=== PATIENT | female | born 1940 | race Caucasian/White ===

== ENCOUNTER → 2019-12-31 13:36 | Outpatient (CLI) | payer MEDICARE, OTHER, SELFPAY ==
[2020-01-01 08:41] LABS: COVID19 Sendout Not Detected (Not Detect)
== END ==
PROVIDERS: Visit Provider Nurse Practitioner
DX: Z01.812 Encounter for preprocedural laboratory examination (principal)
CPT/HCPCS: 87635

== ENCOUNTER 2020-01-03 08:50 | Day surgery (SDC) | payer MEDICARE, OTHER, SELFPAY ==
[2019-12-31 09:21] VITALS: BMI 32.9
[2020-01-03] VITALS (19 sets, daily range): BP systolic 93–148; BP diastolic 51–80; PULSE 76–98; RESP 10–18; TEMP 35.9–36.8; O2SAT 94–100; BMI 31.6
--- NOTE | 2020-01-03 07:38 | DI.RAD.S_ITS ---
PROCEDURE: XR KNEE LT 1TO2V INDICATIONS: post op total knee TECHNIQUE: 2 view(s) of the knee acquired. COMPARISON: None. FINDINGS: Bones: Patient is status post knee joint arthroplasty. Hardware components are in expected positions. Visualized bony structures are intact. Soft tissues: Overlying postoperative changes are noted. IMPRESSION: Expected postoperative appearance after left total knee arthroplasty. Normal alignment. Dictated by: Dayne Morgan M.D. on 01/03/2020 at 13:44 Approved by: Dayne Morgan M.D. on 01/03/2020 at 13:45
[2020-01-03] MEDS: LACTATED RINGERS 1,000 ML 42 ML IV ×2 (09:49→12:15)
[2020-01-03] MEDS: PREGABALIN 75 MG CAPSULE PO (09:50)
[2020-01-03] MEDS: CELECOXIB 200 MG CAPSULE 400 MG PO (09:50)
[2020-01-03] MEDS: ACETAMINOPHEN 325 MG TABLET 975 MG PO (09:50)
--- NOTE | 2020-01-03 10:20 | PM.PREOP ---
Pre-operative Note COVID-19 COVID-19 status: Negative Result date/Date tested (Pos, Neg/Pending): 12/31/19 Interval Note History & Physical reviewed/Exam performed by Physician: Yes Changes to H&P: No
[2020-01-03] MEDS: CEFAZOLIN 2 GM/100 ML FROZ.PIGGY IV (10:49)
--- NOTE | 2020-01-03 11:27 | SUR.OPER ---
Supine on padded OR bed. Pillow under head, arms secured on padded armboards <90 degree abduction. Safety belt across torso. Non-operative leg secured with tape over blanket over lower leg. Operative leg secured in [employer] positioner.
[2020-01-03] MEDS: BUPIVACAINE 0.25% W/ EPI 30 ML VIAL 60 ML INJ (11:34)
[2020-01-03] MEDS: BUPIVACAINE LIPOSOME 266 MG/20 ML VIAL INJ (11:35)
[2020-01-03] MEDS: MORPHINE 4 MG/ML INJ INJ (11:35)
[2020-01-03] MEDS: TRANEXAMIC ACID 1,000 MG VIAL 1000 MG INJ ×2 (11:36→12:15)
--- NOTE | 2020-01-03 12:49 | PM.OP.1 ---
Operative Date/Time/Diagnoses Date of procedure: 01/03/20 Time of procedure: 12:49 Pre-op diagnosis: Left knee osteoarthritis Post-op diagnosis: same Procedure & Clinicians Procedure: Left total knee replacement Same procedure as scheduled: Yes Indications: The patient has had progressively worsening left knee pain with radiographic changes consistent with arthritis. Non-operative management has failed and the patient has requested total knee replacement. The risks, benefits and alternatives to surgery were discussed with the patient prior to proceeding. Risks discussed included, but were not limited to, failure to relieve pain, stiffness, infection, nerve damage, deep venous thrombosis, pulmonary embolism, stroke, coma, heart attack, permanent paralysis and , as well as the potential need for eventual revision of the prosthetic. Surgeon: Julito Bhagat Electrical Engineering Manager: Kirsten Juan Click Yes if Unassisted: No Anesthesia Type: General, Spinal and Local Operative Notes Findings: Severe tricompartmental osteoarthritis worst on the lateral side with valgus deformity. Closure Type: primary Specimen(s): none sent Prosthetic devices, grafts, tissues, transplants, or devices: Implants used in this procedure were manufactured by the [employer] and included the BCS II Journey total knee replacement with a size 4 left cobalt chromium femoral component, a size 3 left non porous tibial base plate, a 9 mm cross-linked polyethylene tibial insert and a 32 mm oval Fide II patella. Applied: implant(s) Estimated Blood Loss (mL): 25 Blood products transfused: none Tourniquet time (min): 53 Procedure in detail: The patient was seen in the pre-operative area, where the left knee was identified as the operative site and this was marked with my initials. The patient received pre-operative antibiotics, and was taken to the operating room and placed on the operative table in the supine position. After satisfactory anesthesia, a registered phlebotomist part time out was performed. The left leg was encircled with a tourniquet about the proximal thigh, and the leg was prepared from the toes to the tourniquet with ChloroPrep in the usual fashion and draped through sterile drapes. The leg was elevated and exsanguinated with Eschmark bandage and the tourniquet inflated to 250 mmHg pressure. The knee was approached through an approximately 18 cm incision centered over the patella and carried into the knee through a medial parapatellar arthrotomy. The anterior osteophytes and soft tissues were removed. The rotational landmarks of Chilo's line and the transepicondylar axis were marked on the femur with electrocautery, and intramedullary guide holes for the femur and tibia were created. The distal femoral cut was made in 6 degrees of valgus using the intramedullary guide at the primary cut setting. The proximal tibial cut was then made using the intramedullary guide, taking 9 mm of bone off the less involved side. The extension gap was checked and the rotation of the femoral component confirmed with the gap balancing blocks. The anterior, posterior and chamfer cuts were then made. The posterior osteophytes and soft tissues were then removed. The posterior capsule was injected with part of a mixture of 30 ml 0.25% Marcaine mixed with 30 mL of saline and 20 ml Exparel and 4 mg of morphine for post-operative pain control. The remainder of this mixture was injected into the capsule and subcutaneous tissues during cement curing. The tibia was prepared with the rotation set by an extra medullary guide. Trial tibial and femoral components were then placed and the intercondylar notch cut through the femoral trial. Range of motion was 0-135 degrees, with good stability throughout the range. The patella was then cut to accommodate the patellar prosthetic. There was no need for a lateral release. The trials were then removed, and the femoral hole plugged with a bone plug. The bone was prepared with pulsatile lavage, and dried with a sponge. Cement was applied and the final prosthetics placed. Excess cement was removed during and after cement curing. After confirming there was no extruded cement posteriorly, the final tibial insert was placed. The knee was copiously irrigated and the tourniquet deflated. Hemostasis was obtained. The capsule was closed with interrupted # 2 polyester sutures. The subcutaneous layer was closed with 3-0 Vicryl, and the skin with a running 3-0 V-Lock suture and SteriStrips. An Aquacel Ag dressing was applied and the patient was taken to recovery having tolerated the procedure well. Complications: none Post-operative Condition: stable Disposition: PACU Plan for aftercare: The patient will be maintained on a standard total knee replacement protocol with weight bearing as tolerated. The patient will receive aspirin and sequential compression devices for DVT prophylaxis. The patient will be discharged home when safe for the home environment.
--- NOTE | 2020-01-03 12:49 | SUR.PHASEI ---
Bedside report given to Scott Aldana RN at this time. Pt in stable condition, vss. Transferred care of pt to Brice Aldana at this time.
[2020-01-03] MEDS: HYDROMORPHONE 2 MG INJ IV ×4 (13:04→13:40)
[2020-01-03] MEDS: fentaNYL 100 MCG/2 ML INJ IV ×2 (13:10→13:21)
--- NOTE | 2020-01-03 13:12 | SUR.PHASEI ---
Assumed care from Stephany. Pt c/o 01/17 pain, medicated with Dilaudid and fentanyl.
--- NOTE | 2020-01-03 13:32 | SUR.PHASEI ---
ASSUMED CARE OF PT AT THIS TIME. RECEIVED BEDSIDE REPORT FROM PREETI MANN.
[2020-01-03] MEDS: OXYCODONE IR 5 MG TABLET PO (13:45)
--- NOTE | 2020-01-03 14:37 | SUR.PHASEI ---
REPORT CALLED TO PREETI EDMONDS ON ACUTE CARE FLOOR. PT IN STABLE CONDITION, VSS. PT TRANSFERRED TO ACUTE CARE FLOOR BY Anders MONZON IN STABLE CONDITION.
--- NOTE | 2020-01-03 14:53 | PC.NURSE ---
Patient brought up from PACU, oriented to room and call light, VSS. Aquacel dressing CDI to left knee. Patient reports pain is now mild. Patient suddenly felt her legs were wet and had incontinent episode of urine soaked in pad/sheets. Cleansed and linens changed. call light placed within reach.
[2020-01-03] MEDS: LACTATED RINGERS 1,000 ML 100 ML IV (15:10)
[2020-01-03] MEDS: ACETAMINOPHEN 325 MG TABLET 650 MG PO (15:56)
[2020-01-03] MEDS: IBUPROFEN 400 MG TABLET PO (15:56)
--- NOTE | 2020-01-03 17:00 | PC.NURSE ---
Addendum entered by Danita Becerra R.N. 01/03/20 22:32: Rouses easily to voice. Taking ice chips without any further nausea. No change in neurovascular status this evening shift. 02 1L per nc sats 98% per continuous monitor. BL calf scd's in place. Held hs meds d/t nausea and vomiting. Addendum entered by Danita Becerra R.N. 01/03/20 20:41: Mostly sleeping. Rouses to movement in room. No signs of distress or discomfort. Addendum entered by Danita Becerra R.N. 01/03/20 19:27: Pt has spontaneous emesis with movement in bed. This is coffee in color and pt reports just drank coffee. Up to commode to void without any c/o dizziness. Additional emesis while sitting upon commode. Zofran administered. Returned to bed and positioned for comfort. BL calf scd's replaced. Room air 87-88%. 02 @ 2L/min replaced. Oxygen saturation level increases to 99%. Original Note: Pt drowsy but able to participate in admit assessment. Spouse is present in room with pt. Continuous pulse oximeter indicates pt desats while awake to 80's and even 70's. This value is questioned as pt is fully awake and conversant. Placed pt on oxygen @ 3L/min and oxygen level increases to 100% with sleep. I.S. provided and pt instructed and able to provide return demonstration. Diminished breath sounds to posterior marrero throughout. Denies nausea. Denies pain. States sensation is returning to buttocks/perineum and BL LE's. Equally warm and pink lower extremities. Decreased to 2L oxygen. Denies history of sleep apnea.
[2020-01-03] MEDS: PANTOPRAZOLE 20 MG TABLET PO (18:04)
[2020-01-03] MEDS: ONDANSETRON 4 MG/2 ML INJ IV (18:45)
[2020-01-04] VITALS: BP 137/77; PULSE 92; RESP 16; TEMP 36.6; O2SAT 94
[2020-01-04] MEDS: LACTATED RINGERS 1,000 ML 100 ML IV (01:00)
[2020-01-04] MEDS: IBUPROFEN 400 MG TABLET PO ×3 (01:00→09:20)
[2020-01-04] MEDS: ONDANSETRON 4 MG/2 ML INJ IV (03:59)
[2020-01-04 04:00] VITALS: BP 119/68; PULSE 89; RESP 16; TEMP 36.1; O2SAT 97
[2020-01-04 06:07] LABS: Hematocrit 35.5 % (36-46); Hemoglobin 11.8 g/dL (12.0-16.0)
[2020-01-04 07:22] VITALS: BP 105/64; PULSE 70; RESP 14; TEMP 37.1; O2SAT 95
[2020-01-04] MEDS: ACETAMINOPHEN 325 MG TABLET 650 MG PO (07:33)
[2020-01-04] MEDS: ASPIRIN EC 81 MG TABLET PO (07:33)
[2020-01-04] MEDS: OXYCODONE IR 5 MG TABLET PO (07:33)
[2020-01-04] MEDS: DOCUSATE 100 MG CAPSULE PO (07:34)
[2020-01-04] MEDS: PANTOPRAZOLE 20 MG TABLET PO (07:36)
--- NOTE | 2020-01-04 08:23 | PM.DS.1 ---
History of Present Illness History of Present Illness Date Patient Seen: 01/04/20 Time Patient Seen: 08:23 Chief complaint: *[id number] Narrative: The history and physical are contained in the chart in a previously completed note. Please refer to that note for this information. Discharge Providers Provider Discharge Date: 01/04/20 Primary care physician: Levar Bhandari MD Consults: 01/03/20 14:48 Consult to Anesthesiology Routine Comment: Consulting Provider: Anesthesiologist Reason for consultation: Regional block for post operative pain control Consult to Discharge Planning Routine Comment: Consult to Physical Therapy Evaluate & Treat Comment: Physician Instructions: postop TKA protocol Discharge provider: Julito Bhagat MD Summary Hospital Course Discharge Diagnosis: 1. Left knee osteoarthritis 2. Post hemorrhagic anemia Hospital Course: The patient was admitted to the hospital and taken directly to the operating room on January 03, 2020 where she underwent a left total knee replacement without complication. She was stable overnight and at the time of this dictation and is likely she will go home after physical therapy. Status at Discharge Cognitive/behavioral status at discharge: oriented Functional status at discharge: uses cane/walker Overall status at discharge: patient is progressing back to baseline Time Spent with Patient Time spent: Less than 30 minutes Exam Vital Signs (past 8 hours): - 01/04/20 04:00 01/04/20 07:22 Temperature 97.0 F L 98.8 F Pulse Rate 89 70 Respiratory Rate 16 14 Blood Pressure 119/68 105/64 Pulse Oximetry 97 95 Oxygen Delivery Method Room Air Oxygen Flow Rate 0 Narrative Exam Narrative: Left knee wound is dressed with no drainage on the bandage. Calf is soft. Light touch and motion are intact in the left lower extremity. Objective Labs Result Diagrams: 01/04/20 05:45 Labs: Laboratory Results - last 24 hr 01/04/20 05:45 Hgb 11.8 L Hct 35.5 L Discharge Plan Discharge Plan Patient Disposition: Home Discharge Med Rec/Prescriptions Prescriptions: New acetaminophen 325 mg Tablet 650 mg PO TID 30 Days Qty: 180 RF: 0 aspirin 81 mg Tablet,Delayed Release (Dr/Ec) 81 mg PO BID 42 Days Qty: 84 RF: 0 ibuprofen 400 mg Tablet 400 mg PO Q4HR 30 Days RF: 0 oxycodone 5 mg Tablet 5 mg PO Q4H PRN (Reason: Pain, Moderate (4-6)) Qty: 40 RF: 0 Continued omeprazole 20 mg Capsule,Delayed Release(Dr/Ec) 20 mg PO DAILY PRN (Reason: Heartburn) RF: 0 zolpidem 5 mg Tablet 5 mg PO BEDTIME PRN (Reason: Sleep) RF: 0 Discontinued ibuprofen 200 mg Capsule 400 mg PO DAILY PRN (Reason: Pain) RF: 0 Follow up/Referrals: Levar Bhandari MD [Primary Care Provider] - Julito Bhagat MD [Physician] - 2 Weeks Discharge Orders: Discharge (Order); Ordered 01/04/20 Ordered By: Julito Bhagat Provider Discharge Instructions Diet: Diet as Tolerated and Regular Activity: You may bear weight as tolerated on your left leg. Cold/Heat Therapy: Apply ice for 15 minutes every hour as needed to the left knee for pain control. Skin/Wound/Dressing Care Report to your healthcare provider any signs of infection, such as:: chills, fever, night sweats, increased pain, unusual drainage and unusual redness Dressing: You may shower with the dressing in place. Leave the dressing in place until your postoperative follow-up. If the central strip of the dressing becomes saturated with either water or blood, please call the office to have it evaluated. Visit Report/Discharge Packet Instructions: DI for Knee Replacement Stand Alone Forms: Surgery Discharge Discharge Data Primary Care Provider: Levar Bhandari Attending Provider: Julito Bhagat
--- NOTE | 2020-01-04 08:48 | PC.NURSE ---
Addendum entered by Becca Gaston R.N. 01/04/20 10:37: Patient worked with physical therapy and cleared for discharge. Went over DC meds and instructions with patient and patients spouse. Questions answered. Rx for medication given. Patient taken via wc to vehicle driven by . Patient had all belongings. Original Note: Patient alert oriented, rates pain to left knee 8/10 given 5mg oxycodone with pudding.
--- NOTE | 2020-01-04 11:05 | PT.IIE ---
Current Diagnoses Unilateral primary osteoarthritis, left knee (01/03/20) Surgery Performed Operation Date: 01/03/20 10:30 Actual Procedures p Total Knee Arthroplasty(Left) - Julito Bhagat MD Surgical History (Last Updated 12/31/19 @ 10:12 by Natalie Figueroa, RN) History of carpal tunnel release of both wrists (Acute) History of meniscectomy of left knee (Acute) History of meniscectomy of right knee (Acute) Hx of tonsillectomy (Acute) Hx of tubal ligation (Acute) S/P epidural steroid injection (Acute) Status post blepharoplasty of both eyes (Acute) Medical History (Last Updated 12/31/19 @ 10:12 by Natalie Figueroa RN) Diverticulitis (Acute) Diverticulosis (Acute) Left shoulder pain (Acute) Physical Therapy Inpatient Evaluation/Re-Eval M1 PT/OT-IP Prior Functional Status Start: 01/04/20 08:37 Freq: NEEDED Status: Discharge Protocol: Document 01/04/20 09:47 (Rec: 01/04/20 11:04 [id number]) Medical Review Prior Functional Status Medical History Reviewed Yes Diet/Fluid Consistency Regular Communication no deficits noted. able to make needs known Mobility and Gait independent for home and community mobility without AD. Pt has been home bound lately d/t increased knee pain and COVID 19 pandemic Activities of Daily Living and IADL's independent for ADLs and IADLs without AD. able to drive Social History Household Members spouse Living Arrangements House Number of Floors (Floors) One Floor Number of Stairs To Enter/Railing? no KANWAL for main entrance, 1STE from garage entrance Home Environment High Toilet,Walk in Shower, Built-In Shower Seat Home Equipment Front Wheel Walker,Straight Cane,Raised Toilet Seat w/ Armrests,Shower Seat with Backrest,Putty And Patch Worker Employment Status Retired Additional Social History Comment Pt lives with her Sean in a [facility] home in [place]. Sean had 2 TKA before and pt was able to be a CG for him. Sean will be able to assist as needed upon DC. And she will start outpatient PT from 6/29 M2 PT-IP Current Condition Start: 01/04/20 08:37 Freq: NEEDED Status: Discharge Protocol: Document 01/04/20 09:47 (Rec: 01/04/20 11:04 [email or web address]) Physical Therapy Current Condition Current Condition Evaluation Date 01/04/20 Treatment Diagnosis L TKA, difficulty in walking Onset Date 01/03/20 Weight Bearing Status Weight Bearing Status Weight Bear as Tolerated M3 PT-IP Subjective Start: 01/04/20 08:37 Freq: NEEDED Status: Discharge Protocol: Document 01/04/20 09:47 (Rec: 01/04/20 11:04 [email or web address]) Subjective Physical Therapy Visit Type Type Initial Evaluation Visit Start Time 09:47 Visit Stop Time 10:17 Total Visit Minutes 30 Notes Pt's attended session for CG training Number of FOUNDRY OPERATOR Visits 0 Physical Therapy Visit Comments Patient Comments I feel good but my knee hurts when i stand and bend Patient Goals To return home with Sean Therapy Pain Assessment Pain When Pain Assessed During Mobility Pain Present Pain Present Pain Reported Location l knee Intensity 5 Scale Used Numeric (0 - 10) Description Acute Pain Behaviors Facial Grimacing Pain Management Techniques Modification of Treatment,Re- positioning,Timing of Activity with Medications M4 PT-IP Mobility and Gait Start: 01/04/20 08:37 Freq: NEEDED Status: Discharge Protocol: Document 01/04/20 09:47 (Rec: 01/04/20 11:04 [email or web address]) PT-Transfer Assessment Sit to and From Stand Sit to and from Stand Standby Assistance Equipment Transfer Assistive Device Gait Belt,Front Wheeled Walker Orthotic/Prosthetic Devices or Brace: No Transfers Transfer Destination Chair Transfer Technique FWW Transfer Ability Level of Assist Standby Assistance,Use of Upper Extremities Comments Mobility Comments Pt was in chair upon PT arrival. Denies discomfort except pain with seated knee flexion. Pt completed seated heel slide with towel underneath. She waas able to reach 100 degrees flexion. Pt then rest 1 min and proceed to gait assessment. She stood up by pushing off through B armrests SBA then used FWW for support. She practiced standing lateral weight followed by L TKE. Then this PT instructed pt to lead with L LE for amb. She amb from her chair towards [facility] and returned to chair for a total of 90 ft. Pt's was able to assist with gait belt from the side who demonstrated good pt handling techniques. Pt then transferred back to chair with SBA and cont with seated heel slide. This PT reviewd all rehab HEP with pt and . They both are very receptive and have good understanding. Call light placed within reach after. Gait Assessment Gait Gait Assistance Required: Standby Assistance Distance (Feet) 90 Able to Maintain Weight Bearing Status Yes During Gait Assistive Devices Assistive Device Gait Belt,Front Wheeled Walker Orthotic/Prosthetic Devices or Brace: No Gait Deviations General Gait Pattern Decreased Stride Length, Decreased Feet Clearance Factors Limiting Gait Function Factors Limiting Gait Function Decreased Activity Tolerance, Decreased Strength,Limited Range of Motion,Pain,Poor Balance Comments Gait Comments see mobiltiy comment Stair Climbing Assessment Comments Stair Climbing Comments pt dont have stairs PT-Balance Assessment Sitting Balance and Reactions Static Sitting Balance Ability Normal Dynamic Sitting Balance Ability Normal Standing Balance and Reactions Static Standing Balance Ability Normal Dynamic Standing Balance Ability Good Device Used FWW M5 PT-IP Objective Assessments Start: 01/04/20 08:37 Freq: NEEDED Status: Discharge Protocol: Document 01/04/20 09:47 (Rec: 01/04/20 11:04 [email or web address]) Orientation Orientation/Cognition Level of Alertness Alert Orientation Name,Age,Birthday,Month,Date, Year,Day of Week,Place, Situation Language Function Ability No Deficits Noted Safety Awareness Understands Safety Issues Memory Description No Deficits Noted Gross Range of Motion Upper Extremity ROM Assessment Within Functional Limits Lower Extremity ROM Assessment Left Impaired Impairments 15-100 L knee AROM Strength Upper Extremity Strength Assessment Within Functional Limits Lower Extremity Strength Assessment Left Impaired Hip 5/5 Knee 4-/5 Ankle 5/5 Coordination Assessment Gross Coordination Gross Coordination WNL Sensation Assessment Sensation Gross Sensation WNL Muscle Tone Muscle Tone WNL Yes M6 PT-IP Treatment Start: 01/04/20 08:37 Freq: NEEDED Status: Discharge Protocol: Document 01/04/20 10:17 HH (Rec: 01/04/20 11:04 [id number]) Physical Therapy Treatment Exercises Exercises Ankle Pumps,Gluteal Sets,Quad Sets,Heel Slides Education Education Provided Precautions,Weight Bearing Status,Post-Op Packet,Safety M7 PT-IP Assessment and Plan Start: 01/04/20 08:37 Freq: NEEDED Status: Discharge Protocol: Document 01/04/20 09:47 (Rec: 01/04/20 11:04 [email or web address]) PT Summary Assessment and Plan Potential Rehabilitation Potential Excellent Status of Condition at Evaluation Stable Summary Impairments Pain,ROM,Strength,Balance, Transfers,Gait,Activity Tolerance Progress Towards Goals Safe For Discharge Assessment Summary This is an evaluation only for this 79yo female s/p POD1 L TKA. Upon assessment, pt has very good understand of post op protocol and rehab exercises. Her was also knowledgeble regarding POC d/t his previous 2 TKAs. He was able to assist as needed during session and pt was able to mobilize safely for 90 ft with FWW. Pt denies discomfort besides pain and stated she is ready to be d/c . Pt is safe to d/c home with outpatient PT at this point Frequency of Treatment Frequency Of Treatment Discharge Discharge Recommendations PT Discharge Recommendations Home with Assistance, Outpatient PT Transportation Needs at Discharge Private Vehicle
--- NOTE | 2020-01-04 14:40 | CM.IDA ---
Initial DCP Assessment Note: Pt is a 79 yo female, resident of [place], now POD#1 from Left Uni Knee surgery w/Dr Bhagat PCP: Levar Bhandari Payer: [employer] Reviewed chart, pt discussed in multidisciplinary rounds this morning. Therapy has cleared pt for return home w/family to assist and pt has planned for home, DC order from Ortho has already been initiated this morning. No needs expected from DC planning team although will remain available in case this changes today. ROBERT Boone
== END 2020-01-04 10:39 | disposition home or self-care (01) ==
LOC: OR 09:00 → AC 09:01
PROVIDERS: PCP Internal Medicine; Referring Provider Orthopaedic Surgery; Visit Provider Orthopaedic Surgery
PROC: 0SRD0JZ Replacement of Left Knee Joint with Synthetic Substitute, Open Approach (ICD-10-PCS; CPT 27447; principal; 2020-01-03 10:30)
DX: M17.12 Unilateral primary osteoarthritis, left knee (principal); M21.062 Valgus deformity, not elsewhere classified, left knee
CPT/HCPCS: 27447; 36415; 73560; 85014; 85018; 97110; 97116; 97161; C1776; C9290; J0690; J1170; J2270; J2274; J2405; J2704; J3010

== ENCOUNTER → 2021-11-05 11:40 | Outpatient (CLI) | payer MEDICARE, OTHER, SELFPAY ==
[2020-01-03 15:39] VITALS: BMI 31.6
--- NOTE | 2021-11-05 11:45 | DI.CT.S_ITS ---
PROCEDURE: CT UE LT WO CON INDICATIONS: Pain in left shoulder TECHNIQUE: Noncontrast 1 mm thick sections acquired from the acromioclavicular joint to the inferior scapula using match point protocol, with coronal and sagittal reformatting. COMPARISON: [facility] [place], CR, XR SHOULDER 2+ VIEWS RIGHT, 10/20/2021, 11:19. FINDINGS: Image quality: Excellent. Bones: Moderate to severe glenohumeral joint osteoarthritic changes are seen with joint space narrowing, subchondral sclerosis and prominent inferior marginal osteophyte formation. Moderate acromioclavicular joint osteoarthritic changes also noted with joint space narrowing, subchondral sclerosis and marginal osteophyte formation depressing the musculotendinous junction of supraspinatus. There is no acute fracture or dislocation. No suspicious intraosseous lesion. Visualized left upper ribs are intact. Soft tissues: There is no evidence of full-thickness rotator cuff tendon rupture. Sagittal images show mild supraspinatus muscle atrophy. No significant joint effusion. No abnormal soft tissue calcifications. No axillary lymphadenopathy. Visualized left lung field is clear. IMPRESSION: 1. Moderate to severe glenohumeral joint osteoarthritis and moderate acromioclavicular joint osteoarthritis. No acute fracture or dislocation. No suspicious intraosseous lesion. 2. No significant joint effusion. No abnormal soft tissue calcifications. No gross full-thickness rotator cuff tendon rupture. Mild supraspinatus muscle atrophy. Dictated by: Vikas Monsivais M.D. on 11/05/2021 at 14:17 Approved by: Vikas Monsivais M.D. on 11/05/2021 at 14:20
== END ==
PROVIDERS: PCP Internal Medicine; Referring Provider Orthopaedic Surgery; Visit Provider Orthopaedic Surgery
DX: M25.512 Pain in left shoulder (principal); M19.012 Primary osteoarthritis, left shoulder
CPT/HCPCS: 73200

== ENCOUNTER → 2021-12-21 11:31 | Outpatient (CLI) | payer MEDICARE, OTHER, SELFPAY ==
[2020-01-03 15:39] VITALS: BMI 31.6
[2021-12-22 13:07] LABS: COVID19 -Nasal RAPID Negative (Negative)
== END ==
PROVIDERS: PCP Internal Medicine; Referring Provider Orthopaedic Surgery; Visit Provider Orthopaedic Surgery
DX: Z20.822 Contact with and (suspected) exposure to COVID-19 (principal)
CPT/HCPCS: 87635; C9803

== ENCOUNTER 2021-12-23 11:32 | Inpatient (IN) | payer MEDICARE, OTHER, SELFPAY ==
[2020-01-03 15:39] VITALS: BMI 31.6
[2021-12-15 12:40] VITALS: BMI 31.1
[2021-12-23] VITALS (16 sets, daily range): BP systolic 113–142; BP diastolic 53–83; PULSE 80–96; RESP 10–18; TEMP 36–36.8; O2SAT 88–99; BMI 31.1
--- NOTE | 2021-12-23 08:30 | DI.RAD.S_ITS ---
PROCEDURE: XR SHOULDER LT 1V INDICATIONS: post op total shoulder TECHNIQUE: 1 views of the shoulder were acquired. COMPARISON: None. FINDINGS: Single image demonstrating shoulder arthroplasty. Hardware is intact with good anatomic alignment. Expected postoperative changes are present. IMPRESSION: Expected postoperative changes with left shoulder arthroplasty. Dictated by: Angelina Quinones M.D. on 12/23/2021 at 16:15 Approved by: Angelina Quinones M.D. on 12/23/2021 at 16:16
[2021-12-23] MEDS: ACETAMINOPHEN 325 MG TABLET 975 MG PO (12:38)
[2021-12-23] MEDS: CELECOXIB 200 MG CAPSULE PO (12:38)
[2021-12-23] MEDS: PREGABALIN 75 MG CAPSULE PO (12:39)
[2021-12-23] MEDS: LACTATED RINGERS 1,000 ML 42 ML IV ×2 (12:50→14:45)
--- NOTE | 2021-12-23 12:54 | PM.PREOP ---
Pre-operative Note COVID-19 COVID-19 status: Negative Result date/Date tested (Pos, Neg/Pending): 12/22/21 Interval Note History & Physical reviewed/Exam performed by Physician: Yes Changes to H&P: No
--- NOTE | 2021-12-23 13:30 | SUR.PREOP ---
12/23/21-1307 Patient completed conversation with anesthesia. consents confirmed. time out done.monitors/oxygen on. pre block meds given by Dr. Macedo. procedure started at 1308. pt tolerated well. completed block left shoulder at 13:17. vss. on room air. 1326-To OR With LINUX SYSTEM ADMINISTRATOR. states left arm feels heavier.
[2021-12-23] MEDS: TRANEXAMIC ACID 1,000 MG VIAL 1000 MG INJ ×2 (13:40→15:20)
[2021-12-23] MEDS: CEFAZOLIN 2 GM/20 ML SYRINGE IV (13:42)
--- NOTE | 2021-12-23 14:03 | SUR.OPER ---
Beach chair on padded OR bed. Head on gel donut secured with tape over gauze. Non-operative arm secured <90 degrees abduction on padded arm board. Pillow under knees. Safety belt at thigh. Cloth tape over blanket over lower legs.
[2021-12-23] MEDS: THROMBIN (RECOMBINANT) 5,000 UNIT VIAL 5000 UNIT TOP (14:05)
[2021-12-23] MEDS: BUPIVACAINE 0.5% (PF) 30 ML, EPINEPHrine 0.15 MG INJ (15:29)
--- NOTE | 2021-12-23 15:40 | P.OP_ITS ---
Operative Date/Time/Diagnoses Date of procedure: 12/23/21 Time of procedure: 15:40 Pre-op diagnosis: Left shoulder osteoarthritis Post-op diagnosis: same Procedure & Clinicians Procedure: Left total shoulder replacement Same procedure as scheduled: Yes Indications: The patient has had progressively worsening left shoulder pain with radiographic changes consistent with arthritis. Non-operative management has failed and the patient has requested total shoulder replacement. The risks, benefits and alternatives to surgery were discussed with the patient prior to proceeding. Risks discussed included, but were not limited to, failure to relieve pain, stiffness, infection, nerve damage, deep venous thrombosis, pulmonary embolism, stroke, coma, heart attack, permanent paralysis and , as well as the potential need for eventual revision of the prosthetic. Surgeon: Julito Bhagat [employer] Instrument Repairer: Liang Montemayor Click Yes if Unassisted: No Anesthesia Type: General, Peripheral nerve block and Local Operative Notes Findings: Severe osteoarthritis of the left shoulder with central glenoid wear and large inferior humeral osteophyte. Closure Type: primary Specimen(s): none sent Prosthetic devices, grafts, tissues, transplants, or devices: Implants used in this procedure manufactured by the [employer] and included a 42 mm all-polyethylene pegged E +glenoid, a size 2 canal sparing stem and neck kit and a 42 mm x 16 mm humeral head. Applied: implant(s) Estimated Blood Loss (mL): 150 Blood products transfused: none Procedure in detail: The patient was seen in the pre-operative area, where the patient identified the left shoulder as the operative site and this was marked with my initials. The patient received pre-operative antibiotics, underwent an interscalene block, and was taken to the operating room and placed on the operative table in the supine position. After satisfactory anesthesia, a full ?time out? was performed. The patient was repositioned in the ?beach chair? position using a dedicated positioner. All pressure points were well padded, and the knees were slightly bent to prevent tension on the sciatic nerves. The left arm was prepared from the fingers to the base of the neck with ChloroPrep in the usual fashion and draped through sterile drapes. An approximately 15 cm incision was created, starting at the clavicle above the coracoid process and extended towards the deltoid insertion. The deltopectoral interval was used to access the shoulder. The cephalic vein was taken laterally. A self retaining retractor was placed. The upper centimeter of the pectoralis major tendon was released. The ?three sisters? were identified and cauterized. The axillary nerve was palpated and protected throughout the case. The biceps was released from its groove and tenodesed over the top of the pectoralis major tendon. The subscapularis was released from the lesser tuberosity with a subscapularis peel and tagged for later repair. The inferior osteophytes were removed during capsular release. The shoulder was dislocated and a cutting guide was used for the proximal humeral osteotomy in 30 degrees of retroversion. Additional osteophytes were removed. The proximal humerus was sized using a trial humeral head and the guide pin placed into the humeral metaphysis. The collar Reamer was used. The size 1 broach was placed. A proximal humeral protector was then placed. We then removed the self-retaining retractor and placed retractors to access the glenoid. The subscapularis was released with a ?360 degree release? with care being taken to protect the axillary nerve with the inferior portion of this procedure. The remnant of labrum and biceps stump were removed. The appropriate size reamer was chosen with the glenoid sizer, and the guide pin placed. The glenoid was appropriately reamed. The guide for the peripheral holes was used and the center hole enlarged. The trial glenoid was placed with good stability. We then cemented the final implant into place after irrigating the peg holes and drying them with thrombin-soaked Gelfoam. We returned our attention to the humerus, a trial humeral head was applied and a trial reduction performed. Stability was checked with 50% posterior translation with spontaneous reduction, 45? external rotation at the side with the subscapularis held in the repaired position and 70? of internal rotation in the ?[place] position?. This was felt to be satisfactory and the appropriate implants were opened. Four holes were drilled along the humeral osteotomy and #2 Ethibond sutures placed for eventual subscapularis repair. The humeral prosthetic was impacted into the humerus after threading the sutures through the slot in the anterior humeral prosthetic. The humeral head was applied when the stem was still slightly proud and impacted to both seat the head and fully seat the stem. The joint was relocated one final time. The joint was irrigated and the subscapularis repaired to the previously placed sutures using Mc-Charlie sutures. The top of the subscapularis was closed to the leading edge of the supraspinatus with a figure of 8 #2 Ethibond to close the rotator interval. The deltopectoral interval was closed with interrupted 0 Vicryl. The subcutaneous layer was closed with 3-0 Vicryl, and the skin with a running 3-0 V-Lock suture and Dermabond. An Aquacel Ag dressing was applied, the patient?s arm was placed in a sling, and the patient was taken to recovery having tolerated the procedure well. Complications: none Post-operative Condition: stable Disposition: PACU Plan for aftercare: Patient will be maintained in the hospital overnight likely discharge tomorrow morning provided she is stable.
[2021-12-23] MEDS: OXYCODONE 5 MG/5 ML ORAL SOLUTION PO (16:12)
--- NOTE | 2021-12-23 17:29 | SUR.PHASEI ---
1629 Transferred to floor room 205 on 2L NC. Pt awake, alert, pain controlled. Breathing unassisted, denies SOB. Transferred with own belongings bag. SBAR report to Byron Narvaez. Bed in low position. Call light in place.
[2021-12-23] MEDS: IBUPROFEN 400 MG TABLET PO ×2 (17:35→20:58)
[2021-12-23] MEDS: ACETAMINOPHEN 325 MG TABLET 650 MG PO (17:35)
[2021-12-23] MEDS: LACTATED RINGERS 1,000 ML 100 ML IV (17:38)
--- NOTE | 2021-12-23 18:26 | PC.NURSE ---
Patient arrived to floor a&o x4, reports pain 7/10. Able to arouse, answer questions, make needs known and move self in bed. LUE is still numb and tingly but patient is able to move and lightly squeeze this nurses hand. +CMS, +RP. Spouse at bedside visiting at this time.
[2021-12-23] MEDS: MELATONIN 3 MG TABLET PO (20:58)
[2021-12-23] MEDS: ONDANSETRON 4 MG ODT PO (20:58)
[2021-12-23] MEDS: DOCUSATE 100 MG CAPSULE PO (20:58)
[2021-12-23] MEDS: ASPIRIN EC 81 MG TABLET PO (20:58)
[2021-12-23] MEDS: ZOLPIDEM 5 MG TABLET PO (23:14)
[2021-12-24] VITALS: BP 124/63; PULSE 79; RESP 16; TEMP 35.9; O2SAT 96
[2021-12-24] MEDS: LACTATED RINGERS 1,000 ML 100 ML IV (02:16)
[2021-12-24 04:00] VITALS: BP 125/60; PULSE 79; RESP 16; TEMP 36; O2SAT 95
[2021-12-24] MEDS: ACETAMINOPHEN 325 MG TABLET 650 MG PO (04:29)
[2021-12-24] MEDS: IBUPROFEN 400 MG TABLET PO ×2 (04:29→09:18)
[2021-12-24 06:53] LABS: Hematocrit 35.3 % (36-46); Hemoglobin 12.1 g/dL (12.0-16.0)
[2021-12-24 07:49] VITALS: BP 110/55; PULSE 67; RESP 16; TEMP 36.1; O2SAT 97
--- NOTE | 2021-12-24 08:10 | P.DS_ITS ---
History of Present Illness History of Present Illness Date Patient Seen: 12/24/21 Time Patient Seen: 08:10 Chief complaint: LEFT TOTAL SHOULER ARTHROPLASTY Narrative: The patient has no complaints of pain this morning. She has just had difficulty with hand movement and new onset of tingling in her left upper extremity. She notes that her movement and sensation is returning. She is tribute this to the nerve block yesterday. Overall she is feeling well and would like to be discharged home. Discharge Providers Provider Discharge Date: 12/24/21 Primary care physician: Levar Bhandari MD Consults: 12/23/21 08:29 Consult to Anesthesiology Routine Comment: Consulting Provider: Anesthesiologist Reason for consultation: Regional block for post operative pain control 12/23/21 16:52 Consult to Discharge Planning Routine Comment: Consult to Physical Therapy Evaluate & Treat Comment: Physician Instructions: pendulums, PROM 90 FF, 0 ER, 0 Abd, IR to body Discharge provider: Sarah Mantilla PA-C Summary Hospital Course Discharge Diagnosis: Left shoulder osteoarthritis Hospital Course: Operative Date/Time/Diagnoses Date of procedure: 12/23/21 Time of procedure: 15:40 Procedure & Clinicians Procedure: Left total shoulder replacement Same procedure as scheduled: Yes Indications: The patient has had progressively worsening left shoulder pain with radiographic changes consistent with arthritis. Non-operative management has failed and the patient has requested total shoulder replacement. The risks, benefits and alter natives to surgery were discussed with the patient prior to proceeding. Risks discussed included, but were not limited to, failure to relieve pain, stiffness, infection, nerve damage, deep venous thrombosis, pulmonary embolism, stroke, coma, heart attack, permanent paralysis and , as well as the potential need for eventual revision of the prosthetic. Surgeon: Julito Bhagat Poultry Service Technician: Liang Montemayor Click Yes if Unassisted: No Anesthesia Type: General, Peripheral nerve block and Local Operative Notes Findings: Severe osteoarthritis of the left shoulder with central glenoid wear and large inferior humeral osteophyte. Closure Type: primary Specimen(s): none sent Prosthetic devices, grafts, tissues, transplants, or devices: Implants used in this procedure manufactured by the [employer] and included a 42 mm all-polyethylene pegged E +glenoid, a size 2 canal sparing stem and neck kit and a 42 mm x 16 mm humeral head. Applied: implant(s) Estimated Blood Loss (mL): 150 Blood products transfused: none Status at Discharge Cognitive/behavioral status at discharge: at baseline, oriented Functional status at discharge: uses cane/walker Overall status at discharge: patient is progressing back to baseline Exam Vital Signs (past 8 hours): - 12/24/21 04:00 12/24/21 07:49 Temperature 96.8 F L 97.0 F L Pulse Rate 79 67 Respiratory Rate 16 16 Blood Pressure 125/60 110/55 L Pulse Oximetry 95 97 Oxygen Flow Rate 0 Oxygen Delivery Method Room Air Oxygen Flow Rate 0 Narrative Exam Narrative: Very pleasant 81-year-old female, resting comfortably in bed, no acute distress. Dressing demonstrates a dime-sized area of serosanguineous drainage on the proximal aspect of the incision, otherwise clean, dry, intact. No surrounding erythema or induration. She is in a sling. Strength is 4- out of 5 on the left as compared to the right with forensic manager strength, finger splaying, wrist extension and flexion. She has decreased sensation in the left as compared to the right. Bilateral calves are soft and nontender palpation. Objective Labs Result Diagrams: 12/24/21 06:22 Labs: Laboratory Results - last 24 hr 12/24/21 06:22 Hgb 12.1 Hct 35.3 L PFSH Medical History BCC (basal cell carcinoma) Breast cancer, left (2020) Diverticulitis Diverticulosis Left shoulder pain SCC (squamous cell carcinoma) (10/2021) Surgical History History of arthroplasty of left knee (01/03/20) History of carpal tunnel release of both wrists History of lumpectomy of left breast (2020) History of meniscectomy of left knee History of meniscectomy of right knee Hx of tonsillectomy Hx of tubal ligation S/P epidural steroid injection Status post blepharoplasty of both eyes Social History household members: spouse Smoking Status: Never smoker alcohol intake: current Discharge Assessment & Plan Assessment and Plan Assessment: Stable status post left total shoulder arthroplasty. Plan of Treatment: -mobilize with PT OT. Maintain total shoulder arthroplasty precautions -continue with multimodal pain management. I will send a prescription of oxycodone as at has worked well for the patient in the past. Aspirin 81 mg b.i.d. x6 weeks for DVT prophylaxis -continue to monitor wrist and hand decreased sensation and weakness -DC home once cleared by PT Discharge Plan Discharge Plan Patient Disposition: Home Discharge orders & Medications Discharge Orders: Discharge (Order); Ordered 12/24/21 Ordered By: Sarah Mantilla Prescriptions: New aspirin 81 mg Tablet,Delayed Release (Dr/Ec) 81 mg PO BID 42 Days Qty: 84 0RF Rx Instructions: Prevent blood clots docusate sodium 100 mg Capsule 100 mg PO BID PRN (Reason: As needed for constipation from narcotic pain me ds) Qty: 20 0RF oxycodone 5 mg Tablet See Rx Instructions .ROUTE .COMPLEX PRN (Reason: Pain, Moderate (4-6)) Qty: 30 0RF Rx Instructions: Take 1-2 tablets by mouth every 4 hours as needed for moderate to severe post op pain acetaminophen 500 mg capsule 500 mg PO Q4H MDD Max 3000 mg per day PRN (Reason: fever or pain) Qty: 90 0RF ibuprofen 400 mg Tablet 400 mg PO Q4HR MDD Max 2400 mg per day PRN (Reason: Pain/inflammation) Qty: 90 0RF Continued zolpidem 5 mg Tablet 5 mg PO BEDTIME PRN (Reason: Sleep) anastrozole 1 mg Tablet 1 mg PO DAILY melatonin 5 mg Capsule 5 mg PO BEDTIME Discontinued oxycodone 5 mg Tablet 5 mg PO Q4H PRN (Reason: Pain, Moderate (4-6)) Qty: 40 0RF acetaminophen 500 mg Tablet 1,000 mg PO DAILY PRN (Reason: Pain) Follow up/Referrals: Levar Bhandari MD [Primary Care Provider] - Julito Bhagat MD [Physician] - (10-14 days for postoperative visit) Diet/Activity/Treatments Diet: Diet as Tolerated Other treatments: Medications: -Aspirin 81mg twice daily x6 weeks to prevent blood clots. -OTC Tylenol 500 mg 1 tablet every 4 hours as needed for pain/fever. Max 6 tablets per day. -Ibuprofen 400mg 1 tablet every 4 hours as needed for pain/inflammation. Max 2,400mg per day. -Oxycodone 5 mg take 1-2 tablets every 4 hours as needed for moderate-severe pain (narcotic pain medication). -As needed medications: -Ducolax and /or MiraLax as needed for constipation from narcotic pain medications. -Pepcid AC as needed for stomach upset (usually from aspirin or ibuprofen). Dressing/Wound care: -Keep Aquacell dressing in place until postoperative follow-up office visit. -Okay to shower. Keep wound out of direct water stream. No soaking or s ubmerging until all the scabs fall off (approximately 6 weeks). -Please call the office if dressing becomes wet, soiled, or saturated. Activities: -Continue with sling. -standard total shoulder replacement protocol with passive range of motion limited to 90 degrees forward flexion, 0 degrees external rotation at the side, 0 degrees abduction and internal rotation to the body. -Continue with home exercises as directed by your physical therapist. -Ice your incision as needed for pain/inflammation/swelling. Protect your skin with a folded pillowcase. -Incentive Spirometer (breathing device from hospital): 5-10xs every hour while awake for the first 1-2 weeks. Follow-up: -Follow-up with your surgeon or PA in the office in 10-14 days after surgery. -Follow-up with your surgeon 6 weeks postoperatively. Call the office if you have chest pain, shortness of breath, significant swelling that will not resolve with elevating, fever over 101?, significantly worsening pain, or are concerned you might need to go to the Emergency Room. [facility]: [phone] Skin/Wound/Dressing Care Report to your healthcare provider any signs of infection, such as:: chills, fever, night sweats, unusual drainage and unusual redness Visit Report/Discharge Packet Instructions: DI for Shoulder Replacement Stand Alone Forms: Surgery Discharge Discharge Data Primary Care Provider: Levar Bhandari Attending Provider: Julito Bhagat
[2021-12-24] MEDS: ANASTROZOLE 1 MG TABLET PO (09:09)
[2021-12-24] MEDS: ASPIRIN EC 81 MG TABLET PO (09:14)
[2021-12-24] MEDS: DOCUSATE 100 MG CAPSULE PO (09:18)
--- NOTE | 2021-12-24 09:25 | PT.IIE ---
Current Diagnoses Primary osteoarthritis, left shoulder (12/23/21) Surgery Performed Operation Date: 12/23/21 13:15 Actual Procedures p Total Shoulder Arthroplasty(Left) - Julito Bhagat MD Surgical History (Last Reviewed 12/24/21 @ 08:12 by Sarah Mantilla PA-C) History of arthroplasty of left knee (01/03/20) History of carpal tunnel release of both wrists History of lumpectomy of left breast (2020) History of meniscectomy of left knee History of meniscectomy of right knee Hx of tonsillectomy Hx of tubal ligation S/P epidural steroid injection Status post blepharoplasty of both eyes Medical History (Last Reviewed 12/24/21 @ 08:12 by Sarah Mantilla PA-C) BCC (basal cell carcinoma) Breast cancer, left (2020) Diverticulitis Diverticulosis Left shoulder pain SCC (squamous cell carcinoma) (10/2021) Physical Therapy Inpatient Evaluation/Re-Eval M1 PT/OT-IP Prior Functional Status Start: 12/24/21 13:23 Freq: NEEDED Status: Active Protocol: Document 12/24/21 09:25 AB (Rec: 12/24/21 13:33 AB [id number]) Medical Review Prior Functional Status Medical History Reviewed Yes Communication able to make needs known Mobility and Gait pt stated that she is independent with all mobilities and ambulation without AD Social History Household Members spouse Living Arrangements House Number of Floors (Floors) One Floor Number of Stairs To Enter/Railing? 1 step to enter the house Home Environment High Toilet,Walk in Shower Additional Social History Comment has an adjustable bed M2 PT-IP Current Condition Start: 12/24/21 13:23 Freq: NEEDED Status: Active Protocol: Document 12/24/21 09:25 AB (Rec: 12/24/21 13:33 AB [email or web address]) Physical Therapy Current Condition Current Condition Evaluation Date 12/24/21 Treatment Diagnosis s/p L TSA; difficulty in walking Onset Date 12/23/21 M3 PT-IP Subjective Start: 12/24/21 13:23 Freq: NEEDED Status: Active Protocol: Document 12/24/21 09:25 AB (Rec: 12/24/21 13:33 AB [email or web address]) Subjective Physical Therapy Visit Type Type Initial Evaluation Visit Start Time 09:25 Visit Stop Time 10:21 Total Visit Minutes 56 Number of DELINQUENT TAX COLLECTOR Visits 0 Physical Therapy Visit Comments Patient Comments agreeable to do PT Therapy Pain Assessment Pain When Pain Assessed At Rest Pain Present Pain Present Pain Reported Location Right Shoulder Intensity 2 Scale Used Numeric (0 - 10) Pain Management Techniques Distraction,Modification of Treatment,Re-positioning, Timing of Activity with Medications M4 PT-IP Mobility and Gait Start: 12/24/21 13:23 Freq: NEEDED Status: Active Protocol: Document 12/24/21 09:25 AB (Rec: 12/24/21 13:33 AB [id number]) PT-Bed Mobility Assessment Supine to Sit Supine to Sit Standby Assistance Sit to Supine Sit to Supine Standby Assistance PT-Transfer Assessment Sit to and From Stand Sit to and from Stand Standby Assistance Equipment Transfer Assistive Device None,Gait Belt Orthotic/Prosthetic Devices or Brace: Yes Transfers Transfer Destination Chair Transfer Technique Stand Step Pivot Transfer Ability Level of Assist Standby Assistance Comments Mobility Comments educated on shoulder precautions, pendulum, elbow/ hand exercises and sling management. completed supine to sit with HOB elevated sBA. able to sit on EOB SBA. assisted and educated on sling managment. attempted pendulum but unable to complete successfully due to increase muscle guarding. completed elbow and hand exercises. pt ambulated in room without AD SBA. spouse came in. educated on how to management sling and demonstrated and able to complete safely. pt ambulated out of the room without AD SBA and completed up/down step holding on to edge of wall for support SBA. pt uses door edge to hold on to at home. pt ambulated more ~ 50 ft without AD and back to her room. sat on chair and requested to use the toilet. ambulated to the toilet without AD SBA. Left pt with spouse and NAC in room. pt and spouse without further concerns. Gait Assessment Gait Gait Assistance Required: Standby Assistance Distance (Feet) 50 Able to Maintain Weight Bearing Status Yes During Gait Assistive Devices Assistive Device None,Gait Belt Orthotic/Prosthetic Devices or Brace: Yes Gait Deviations General Gait Pattern Decreased Stride Length, Decreased Feet Clearance Factors Limiting Gait Function Factors Limiting Gait Function Decreased Activity Tolerance, Decreased Strength,Limited Range of Motion,Pain,Poor Balance,Poor Safety Awareness Stair Climbing Assessment Evaluation Level of Assist On Stairs Standby Assistance Devices Stair Climbing Assistive Devices Right Railing Technique/Endurance Stair Climbing Direction Ascend and Descend Stair Climbing Technique Step to Step Number of Steps Climbed 1 Query Text: Stair Climbing Set # Repetitions (reps) 2 PT-Balance Assessment Sitting Balance and Reactions Static Sitting Balance Ability Normal Dynamic Sitting Balance Ability Normal Standing Balance and Reactions Static Standing Balance Ability Good Dynamic Standing Balance Ability Good Device Used without AD M5 PT-IP Objective Assessments Start: 12/24/21 13:23 Freq: NEEDED Status: Active Protocol: Document 12/24/21 09:25 AB (Rec: 12/24/21 13:33 AB [id number]) Orientation Orientation/Cognition Level of Alertness Alert Orientation Name Language Function Ability No Deficits Noted Safety Awareness Understands Safety Issues Memory Description No Deficits Noted Gross Range of Motion Lower Extremity ROM Assessment Within Functional Limits Strength Lower Extremity Strength Assessment Within Functional Limits Coordination Assessment Gross Coordination Gross Coordination WNL Muscle Tone Muscle Tone WNL Yes M6 PT-IP Treatment Start: 12/24/21 13:23 Freq: NEEDED Status: Active Protocol: Document 12/24/21 09:25 AB (Rec: 12/24/21 13:33 AB [email or web address]) Physical Therapy Treatment Exercises Exercises Shoulder Pendulums,Elbow Flexion/Extension,Wrist ROM, Hand ROM Education Education Provided Precautions,Weight Bearing Status,Post-Op Packet,Safety Brace Education [place],Patient, Caregiver M7 PT-IP Assessment and Plan Start: 12/24/21 13:23 Freq: NEEDED Status: Active Protocol: Document 12/24/21 09:25 AB (Rec: 12/24/21 13:33 AB [email or web address]) PT Summary Assessment and Plan Potential Rehabilitation Potential Good Status of Condition at Evaluation Stable Summary Impairments Pain,ROM,Strength,Balance, Coordination,Sensation,Tone, Cognition,Bed Mobility, Transfers,Gait,Activity Tolerance Assessment Summary pt requiring SBA with mobility and caregiver training for sling management completed. pt plans to go home today and may go home when medically stable. Goals Bed Mobility Goal Independent Transfer Goal Independent Gait Goal Independent Gait Distance 300 Other Goals up/down 1 step without AD mod I Frequency of Treatment Frequency Of Treatment Twice a Day Treatment Plan Physical Therapy Treatment Plan Bed Mobility Training,Transfer Training,Gait Training, Therapeutic Exercise,Balance Retraining,Post Op Education, Discharge Planning,Hot or Cold Pack,Neuromuscular Re-ed, Coordination Retraining,Manual Therapy Precautions Shoulder Precautions Sling,PROM,Internal Rotation to Body,No External Rotation, No Abduction,Forward Flexion to 90 degrees,Pendulums Weight Bearing Status Weight Bearing Status Non-Weight Bearing Allowed Weight Bearing Amount (enter % LUE NWB or #) (%) Recommendations To Nursing Amount of Assist Needed Standby Assistance Discharge Recommendations PT Discharge Recommendations Home with Assistance, Outpatient PT Transportation Needs at Discharge Private Vehicle
--- NOTE | 2021-12-24 09:29 | CM.DANOTE ---
Initial DCP Assessment Note Pt is a 81 yo female, resident of [place], now POD#1 from [facility] Total Shoulder by Dr Bhagat PCP: Levar Bhandari Payer: [employer] Reviewed chart, Therapy pending this morning, pt has planned for home; DC order from Ortho has already been initiated this morning. Plan: DC home w/spouse is anticipated No needs expected from DC planning team although will remain available in case this changes today, therapies still pending for clearance ROBERT Gonzalez Discharge Planning/Care Management CM Discharge Assessment Start: 12/24/21 09:14 Freq: Status: Active Protocol: Document 12/24/21 09:14 [email or web address] (Rec: 12/24/21 09:29 GUANACO [id number]) Discharge Planning Assessment Assigned Road Traffic Controller ROBERT Zuluaga DPOA/Assigned Designee Name Sean Ureña, spouse Contact Information [phone] Advance Directives? No Advance Directives on File No History Provided By Patient,Medical Record Prior Living Arrangements House Household Members spouse Type of transporation used prior to Drives own vehicle admit Independent with ADL's Yes: Increased pain with ADLs Is patient alert and oriented? Yes Needs Assistance With Home Chores / Shopping Barriers to Discharge No Comment None expected, therapies pending today Discharge Plan Home Transportation Arrangement Spouse Referrals Initiated None needed Additional Comment No referrals needed at this time...will follow closely in case this changes.
--- NOTE | 2021-12-24 12:15 | PC.NURSE ---
Pt received Awake and 0x4, pleasant. Denies any distress and reports mild discomfort 1/10 pulling pain in L arm. She reports some numbness to L hand and noted weak mobility, her LUE remains in sling. Per ortho she is cleared for discharge after PT. PT works with this a.m. after breakfast. Pt's at bedside supportive. Pt verbalizes understanding of discharge, medications, plan, s/sx of infection, blood clots, site care and follow up appointment. She is escorted by w/chair to private vehicle with her and all of her belongings at approximately 1100.
== END 2021-12-24 11:02 | disposition home or self-care (01) | DRG 483 ==
LOC: OR 11:37 → AC 12-24 08:14
PROVIDERS: Admitting Provider Orthopaedic Surgery; PCP Internal Medicine; Referring Provider Orthopaedic Surgery; Visit Provider Orthopaedic Surgery
PROC: 0RRK0JZ Replacement of Left Shoulder Joint with Synthetic Substitute, Open Approach (ICD-10-PCS; CPT 23472; principal; 2021-12-23 13:15)
DX: M19.012 Primary osteoarthritis, left shoulder (principal); M25.712 Osteophyte, left shoulder; C50.912 Malignant neoplasm of unspecified site of left female breast; Z20.822 Contact with and (suspected) exposure to COVID-19
CPT/HCPCS: 64450; 73020; 85014; 85018; 87635; 97161; 97530; C1776; C9803; J0171; J0330; J0690; J1100; J2250; J2405; J2704; J3010